=== PATIENT | female | born 2000 | race Caucasian/White ===

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

== ENCOUNTER 2021-12-08 12:41 | Outpatient (CLI) | payer OTHER, MEDICAID, SELFPAY ==
--- NOTE | 2021-12-08 12:46 | RAD_ITS ---
STUDY: X-RAY - LUMBAR SPINE REASON FOR EXAM: Female, 21 years old. PAIN TECHNIQUE: 3 view(s) of the lumbar spine were obtained. COMPARISON: None FINDINGS: There is straightening of the normal lumbar lordosis. There is no substantial scoliosis. There is a normal alignment of the vertebrae. Normal vertebral bodies and endplates. Normal disc space heights. The soft tissue structures are unremarkable. RAD/Lumbar Spine 2 or 3 Views IMPRESSION: Straightening of the normal lumbar lordosis. Electronically Signed: Jason Taylor MD at 15:31 EST ,
--- NOTE | 2021-12-08 12:46 | RAD_ITS ---
STUDY: X-RAY - PELVIS AND BILATERAL HIPS REASON FOR EXAM: Female, 21 years old. Acute low back pain. TECHNIQUE: AP view of the pelvis.? 2 views of the right hip, and 2 views of the left hip were obtained. COMPARISON: None. FINDINGS: There is a non-specific bowel gas pattern. There is a 4.7 mm rounded calcific density in the left pelvis. This may represent a distal left ureteral calculus. Clinical correlation is recommended. Normal bilateral iliac wings, sacroiliac joints and visualized sacrum. Normal bilateral superior and inferior pubic rami. Normal pubic symphysis. Normal bilateral ischial tuberosities. Normal visualized right femoral head. Normal right acetabulum. Normal right hip joint. Normal visualized left femoral head. Normal left acetabulum. Normal left hip joint. RAD/Hips B/L min 2 views w/ Pelvis IMPRESSION: Normal x-ray examination of the pelvis and bilateral hips. 4.7 mm rounded calcific density in the left hemipelvis. A distal left ureteral calculus should be ruled out. Electronically Signed: Jason Taylor MD at 13:42 EST ,
== END 2021-12-08 23:59 | disposition short-term general hospital (02) ==
LOC: MTRAD 12:44
PROVIDERS: PCP Student in an Organized Health Care Education/Training Program; Referring Provider Student in an Organized Health Care Education/Training Program; Visit Provider Student in an Organized Health Care Education/Training Program
DX: M54.50 Low back pain, unspecified (principal)
CPT/HCPCS: 72100; 73521

== ENCOUNTER 2021-12-20 14:27 | Outpatient (CLI) | payer OTHER, MEDICAID, SELFPAY ==
--- NOTE | 2021-12-20 14:30 | US_ITS ---
STUDY: ULTRASOUND OF THE FEMALE PELVIS - COMPLETE REASON FOR EXAM: Female, 21 years old. LOW BK PAIN TECHNIQUE: Endovaginal. Transvaginal US was obtained to better visualized the ovaries. COMPARISON: None. FINDINGS: The uterus is anteverted and is in a midline position. The uterus measures 5.5x3.4 cm. Normal uterine cervix. The endometrium measures 1 mm in thickness, and is hyperechoic. There is no demonstrated endometrial mass. There is no demonstrated myometrial mass. I.U.D. - The patient does not have an I.U.D. The right ovary is visualized. The right ovary measures 2.3x1.6 cm. There is no right ovarian cyst or ovarian mass. There is no visualized right adnexal mass or complex lesion. There is normal arterial and normal venous vascularity. The left ovary is visualized. The left ovary measures 2.2x1.7 cm. There is no left ovarian cyst or ovarian mass. There is no visualized left adnexal mass or complex lesion. There is normal arterial and normal venous vascularity. There is no fluid in the cul-de-sac. The urinary bladder is distended. This can suggest urinary retention. Bladder volume is 721cc. US/Pelvic (Non ) IMPRESSION: The urinary bladder is distended. This can suggest urinary retention. Electronically Signed: Ollie Salguero MD at 18:53 EST ,
--- NOTE | 2021-12-20 14:31 | US_ITS ---
STUDY: ULTRASOUND OF THE FEMALE PELVIS - COMPLETE REASON FOR EXAM: Female, 21 years old. LOW BK PAIN TECHNIQUE: Endovaginal. Transvaginal US was obtained to better visualized the ovaries. COMPARISON: None. FINDINGS: The uterus is anteverted and is in a midline position. The uterus measures 5.5x3.4 cm. Normal uterine cervix. The endometrium measures 1 mm in thickness, and is hyperechoic. There is no demonstrated endometrial mass. There is no demonstrated myometrial mass. I.U.D. - The patient does not have an I.U.D. The right ovary is visualized. The right ovary measures 2.3x1.6 cm. There is no right ovarian cyst or ovarian mass. There is no visualized right adnexal mass or complex lesion. There is normal arterial and normal venous vascularity. The left ovary is visualized. The left ovary measures 2.2x1.7 cm. There is no left ovarian cyst or ovarian mass. There is no visualized left adnexal mass or complex lesion. There is normal arterial and normal venous vascularity. There is no fluid in the cul-de-sac. The urinary bladder is distended. This can suggest urinary retention. Bladder volume is 721cc. US/Transvaginal Non- IMPRESSION: The urinary bladder is distended. This can suggest urinary retention. Electronically Signed: Ollie Salguero MD at 18:53 EST ,
== END 2021-12-20 23:59 | disposition home or self-care (01) ==
LOC: US 14:28
PROVIDERS: PCP Student in an Organized Health Care Education/Training Program; Referring Provider Student in an Organized Health Care Education/Training Program; Visit Provider Student in an Organized Health Care Education/Training Program
DX: R93.7 Abnormal findings on diagnostic imaging of other parts of musculoskeletal system (principal); M54.50 Low back pain, unspecified
CPT/HCPCS: 76830; 76856

== ENCOUNTER → 2022-04-25 | Outpatient (CLI) | payer OTHER, MEDICAID, SELFPAY ==
[2022-04-29 19:29] LABS: HPV Reflexed? NOT INDICATED
== END | disposition home or self-care (01) ==
LOC: LABSPEC 04-26 08:14
PROVIDERS: PCP Student in an Organized Health Care Education/Training Program; Referring Provider Nurse Practitioner Women's Health; Visit Provider Nurse Practitioner Women's Health
DX: Z12.4 Encounter for screening for malignant neoplasm of cervix (principal)
CPT/HCPCS: 88175; G0145

== ENCOUNTER 2022-08-17 20:36 | Emergency (ER) | payer OTHER, MEDICAID, SELFPAY ==
[2022-08-17 20:37] VITALS: BP 181/99; PULSE 105; RESP 17; TEMP 36.8; O2SAT 96; BMI 39.1
--- NOTE | 2022-08-17 22:09 | EKG12_ITS ---
Test Reason : DYSRHYTHMIA Blood Pressure : / mmHG Vent. Rate : 093 BPM Atrial Rate : 093 BPM P-R Int : 136 ms QRS Dur : 084 ms QT Int : 358 ms P-R-T Axes : 048 028 031 degrees QTc Int : 445 ms Normal sinus rhythm Normal ECG Confirmed by HIRAM ESCAMILLA, MAAME ([id number]), story editor MI COYLE ([id number]) on 08/18/2022 2:07:04 P M Referred By: BERE Confirmed By:ADAIR GANDHI MD
[2022-08-17 22:36] LABS: Absolute Lymphocyte Count 3.37 X10^3/uL (0.83-4.51); Absolute Neutrophil Count 7.9 X10^3/uL (2.0-7.7); Basophil# 0.05 X10^3/uL; Basophil% 0.4 % (0-1); Hematocrit 39.2 % (37-47); Hemoglobin 12.4 g/dL (12.0-15.0); Lymphocyte # 3.37 X10^3/ul (0.83-4.51); Lymphocyte % 27.6 % (19-41); Mean Corp Hgb Conc 31.6 g/dL (32-36); Mean Corpuscular Volume 82.2 fL (81-99); Mean Platelet Vol. 10.3 fl (6.2-12.0); Monocyte# 0.88 X10^3/uL; Monocyte% 7.2 % (0-10); NRBC Flagged by Analyzer 0 % (0-5); Neutrophil # 7.87 X10^3/uL (2.7-7.7); Neutrophil % 64.5 % (47-70); Platelet Count 317 K/mm3 (150-450); RBC Distribution Width SD 42.3 fl (35.1-43.9); Red Blood Count 4.77 M/mm3 (4.2-5.4); White Blood Count 12.2 K/mm3 (4.4-11.0)
[2022-08-17 22:48] LABS: Internal QC Validated? YES +Cl - CLEAR BKGD; Pregnancy, Serum, hCG Quali. NEGATIVE Negative
--- NOTE | 2022-08-17 22:50 | EDS_ITS ---
HPI History of Present Illness Chief Complaint: Dizziness Narrative Narrative: Patient is a 22-year-old female who states that today when she would change positions such as standing up or bending over she would experience dizziness. She states that the dizziness is more of a lightheaded sensation and not a sense of motion. She states that she also had felt palpitations associated with this. She denies any change in medication or illicit drug. She denies any bouts of nausea vomiting or diarrhea or concern for . She denies any history or family history of cardiac dysrhythmia. She states that as the symptoms have been recurrent throughout the day she presents for evaluation [facility] Medical History Anxiety Asthma Environmental allergies Non-smoker Home Medications loratadine 10 mg tablet 10 mg PO DAILY 04/26/14 [History Last Taken Unknown] albuterol sulfate 90 mcg/actuation aerosol inhaler 2 puff inhalation Q4H PRN PRN Asthma 05/21/14 [History Last Taken Unknown] fluticasone furoate 100 mcg-vilanterol 25 mcg/dose inhalation powder (Breo Ellipta) 1 inh inhalation DAILY 11/03/17 [History Last Taken Unknown] montelukast 10 mg tablet 10 mg PO DAILY 04/27/19 [History Last Taken Unknown] trazodone 100 mg tablet 100 mg PO DAILY 01/11/21 [History Last Taken Unknown] dextroamphetamine-amphetamine ER 20 mg 24hr capsule,extend release (Adderall XR) 30 mg PO DAILY 04/25/22 [History Last Taken Unknown] etonogestrel 0.12 mg-ethinyl estradiol 0.015 mg/24 hr vaginal ring (NuvaRing) 1 vag ring vaginal Q4W #3 ea 04/25/22 [Rx Last Taken Unknown] venlafaxine 75 mg tablet 150 mg PO DAILY 04/25/22 [History Last Taken Unknown] Allergy/AdvReac Type Severity Reaction Status Date / Time No Known Allergies Allergy Verified 08/17/22 20:40 Family History (Updated 04/25/22 @ 09:03 by Donna Tran) Mother H/O: hysterectomy Surgical History History of skin graft History of tonsillectomy Social History (Updated 04/25/22 @ 09:03 by Donna Tran) number of children: 0 current occupational status: employed 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 Smoking Status: Never smoker alcohol intake: never substance use type: does not use seatbelt use: always do you feel safe at home: Yes ROS ROS ED Constitutional Constitutional ED: Denies chills or fever(s) Eyes Eyes: Denies change in vision ENT ENT ED: Denies sore throat Cardiovascular Cardiovascular: Reports palpitations; Denies chest pain Respiratory/Chest Respiratory/Chest: Denies cough or dyspnea Gastrointestinal Gastrointestinal: Denies abdominal pain, diarrhea, nausea or vomiting Genitourinary Genitourinary ED: Denies dysuria Musculoskeletal Musculoskeletal: Denies myalgias Integumentary Denies rash Neurologic Neurologic: Reports other Details: Positive dizziness ; Denies headache(s) Psychiatric Psychiatric: Reports anxiety Hematologic/Lymphatic Hematologic/Lymphatic: Denies easy bleeding or easy bruising EXAM Physical Exam Const Vital Signs: 08/17/22 20:37 08/17/22 21:37 08/17/22 23:09 Temperature 98.2 F Temperature Source Temporal Pulse Rate 105 H 90 Pulse Rate [Lying] Pulse Rate [Sitting (for 1 minute prior to obtaining)] Pulse Rate [Standing (for 1 minute prior to obtaining)] Respiratory Rate 17 16 Respiratory Effort Normal Respiratory Pattern Normal Blood Pressure 181/99 H 122/79 H Blood Pressure [Lying] Blood Pressure [Sitting (for 1 minute prior to obtaining)] Blood Pressure [Standing (for 1 minute prior to obtaining)] Blood Pressure Mean 126 93 Blood Pressure Mean [Lying] Blood Pressure Mean [Sitting (for 1 minute prior to obtaining)] Blood Pressure Mean [Standing (for 1 minute prior to obtaining)] Pulse Ox 96 98 Oxygen Delivery Method Room Air Room Air 08/17/22 23:49 08/18/22 00:07 Temperature Temperature Source Pulse Rate 92 Pulse Rate [Lying] 94 Pulse Rate [Sitting (for 1 minute prior to obtaining)] 95 Pulse Rate [Standing (for 1 minute prior to obtaining)] 97 Respiratory Rate 22 H Respiratory Effort Respiratory Pattern Blood Pressure 135/84 H Blood Pressure [Lying] 134/76 H Blood Pressure [Sitting (for 1 minute prior to obtaining)] 137/81 H Blood Pressure [Standing (for 1 minute prior to obtaining)] 132/82 H Blood Pressure Mean Blood Pressure Mean [Lying] 95 Blood Pressure Mean [Sitting (for 1 minute prior to obtaining)] 99 Blood Pressure Mean [Standing (for 1 minute prior to obtaining)] 98 Pulse Ox 96 Oxygen Delivery Method Positive well nourished, well developed and obese General Appearance ED: well developed Nutritional Appearance: obese HEENT Reports TM's clear HEENT Narrative: Mucous membranes are slightly dry and tacky Tympanic Membrane ED: Yes TM's clear Eyes PERRL and EOMs intact bilaterally Neck supple Resp normal respiratory effort and clear to auscultation bilaterally Cardio regular rate and regular rhythm Rate: other Other Details: Radial pulses are plus 2 out of 4 bilaterally are equal and symmetric Extremity normal to inspection Extremity Narrative: No asymmetric edema no pitting edema Neuro oriented x3 and CN's II-XII intact bilaterally Neuro Narrative: Cranial nerves II through XII are grossly intact there are no focal neurologic deficit. No pronator drift no dysmetria no truncal ataxia. NIH stroke scale score of 0. No nystagmus noted. Sensorium / Orientation: alert Psych mental status grossly normal Skin no rashes or lesions noted and skin turgor normal MDM MDM MDM Narrative Medical decision making narrative: Patient presented to the ER actually hypertensive and slightly tachycardic but otherwise with stable vitals. She had a normal neurologic exam with no truncal ataxia. She also reported that dizziness was more of a lightheaded sensation and not vertiginous in nature. Therefore at this time I did not feel there was need for head CT. Basic blood work was obtained to check for causes of the palpitations as well as lightheaded sensation. H&H is stable and electrolytes are within normal limit. 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 Orthostatic vitals were also negative. Therefore at this time as work-up is negative her symptoms have resolved and there is been no cardiac dysrhythmia noted I do not feel there is need for further evaluation in the hospital and patient is otherwise safe for discharge. Lab Data Attestation: I reviewed the patient's lab results. Labs: Laboratory Results - last 24 hr 08/17/22 08/17/22 08/17/22 22:15 22:15 22:15 WBC 12.2 H RBC 4.77 Hgb 12.4 Hct 39.2 MCV 82.2 MCH 26.0 L MCHC 31.6 L RDW Std Deviation 42.3 RDW Coeff of Valeria 14.0 Plt Count 317 MPV 10.3 Immature Gran % (Auto) 0.300 Neut % (Auto) 64.5 Lymph % (Auto) 27.6 [place] % (Auto) 7.2 Eos % (Auto) 0.0 Baso % (Auto) 0.4 Absolute Neuts (auto) 7.9 H Absolute Lymphs (auto) 3.37 Nucleated RBC % 0 Sodium 139 Potassium 3.7 Chloride 106 Carbon Dioxide 26.0 Anion Gap 7 BUN 12 Creatinine 0.87 Estim Creat Clear Calc 92.04 Est GFR (MDRD) Af Amer 105 Est GFR (MDRD) Non-Af 87 BUN/Creatinine Ratio 13.7 Glucose 101 Calcium 9.2 Magnesium 2.1 Serum , Qual NEGATIVE Discharge Plan Triage Chief Complaint: Dizziness ED Provider: Rory Desir Dx/Rx/DC Orders Clinical Impression: Dizziness, Palpitations Instructions: ED Dizziness, Uncertain Cause, ED Palpitations Prescriptions: No Action fluticasone furoate-vilanterol [Breo Ellipta] 100-25 mcg/dose blister with device 1 inh INHALATION DAILY trazodone 100 mg tablet 100 mg PO DAILY dextroamphetamine-amphetamine [Adderall XR] 20 mg capsule,extended release 24hr 30 mg PO DAILY etonogestrel-ethinyl estradiol [NuvaRing] 0.12-0.015 mg/24 hr ring 1 vag ring VAGINAL Q4W Qty: 3 4RF Rx Instructions: leave in place for 3 weeks of a 4-week cycle loratadine 10 MG tablet 10 mg PO DAILY albuterol sulfate 1 INHALER inhaler 2 puff INHALATION Q4H PRN PRN (Reason: Asthma) montelukast 10 MG tablet 10 mg PO DAILY venlafaxine 75 mg tablet 150 mg PO DAILY Primary Care Provider: Carlos Howell Referrals: Carlos Howell DO [Primary Care Provider] - Disposition Disposition: Home, Self Care Discharge Date/Time: 08/18/22 00:12
[2022-08-17 22:52] LABS: Anion Gap 7 (5-15); BUN 12 mg/dL (7-18); BUN/Creat Ratio 13.7 RATIO (10-20); Calcium,Total 9.2 mg/dL (8.5-10.1); Chloride 106 mmol/L (98-107); Creatinine, Serum 0.87 mg/dL (0.55-1.02); EST Glomerular Filtration Rate 87 mL/min (>60); Est Glom Filt Rate - Afr Amer 105 mL/min (>60); Estimated Creatinine Clearance 92.04 ml/min; Glucose 101 mg/dL (74-106); Magnesium 2.1 mg/dL (1.6-2.6); Potassium 3.7 mmol/L (3.5-5.1); Sodium Level 139 mmol/L (136-145)
[2022-08-17 23:09] VITALS: BP 122/79; PULSE 90; RESP 16; O2SAT 98
[2022-08-17 23:49] VITALS: BP 132/82; BP 134/76; BP 137/81; PULSE 94; PULSE 95; PULSE 97
[2022-08-18 00:07] VITALS: BP 135/84; PULSE 92; RESP 22; O2SAT 96
== END 2022-08-18 00:12 | disposition home or self-care (01) ==
PROVIDERS: Emergency Provider Emergency Medicine; PCP Student in an Organized Health Care Education/Training Program; Visit Provider Emergency Medicine
DX: R42 Dizziness and giddiness (principal); R00.2 Palpitations; E66.9 Obesity, unspecified; J45.909 Unspecified asthma, uncomplicated
CPT/HCPCS: 80048; 83735; 84703; 85025; 93005; 99284; A4216

== ENCOUNTER → 2023-07-03 | Outpatient (CLI) | payer OTHER, MEDICAID, SELFPAY ==
--- NOTE | 2023-07-03 06:57 | CT_ITS ---
STUDY: CT LEFT FOOT WITHOUT CONTRAST REASON FOR EXAM: Female, 23 years old. FLAT FOOTED, EVAL FOR SURGERY RADIATION DOSAGE (If Supplied By Facility): CTDIvol = ( 15.35 ) mGy, DLP = ( 365.28 ) mGycm TECHNIQUE: Thin section transaxial imaging of the foot was obtained, with sagittal and coronal reconstructed images. Individualized dose optimization techniques were used for this CT. COMPARISON: None. FINDINGS: Normal talus, calcaneus, and tarsal bones. Normal Boehler''s angle and calcaneal pitch, without evidence of pes planus on this study. Normal visualized tibiotalar, subtalar, talonavicular, calcaneocuboid, tarsal and tarsometatarsal articulations. Normal metatarsi. Normal metatarsophalangeal joint of the great toe. Normal tibial and fibular sesamoid bones. Normal interphalangeal joint of the great toe. Normal phalanges of the great toe. Normal second through fifth metatarsophalangeal joints. Normal interphalangeal joints and phalanges of the lesser toes. The soft tissue structures are unremarkable. No fractures are present. No visualized osteochondral lesions. CT/Extremity Lower without Contra IMPRESSION: Normal CT examination of the foot. Electronically Signed: Marcos Dennison MD at 8:58 EDT ,
--- NOTE | 2023-07-03 06:59 | CT_ITS ---
STUDY: CT RIGHT FOOT WITHOUT CONTRAST REASON FOR EXAM: Female, 23 years old. PAIN IN LEFT/RIGHT FOOT RADIATION DOSAGE (If Supplied By Facility): CTDIvol = ( 15.35 ) mGy, DLP = ( 369.11 ) mGycm TECHNIQUE: Thin section transaxial imaging of the foot was obtained, with sagittal and coronal reconstructed images. Individualized dose optimization techniques were used for this CT. COMPARISON: None. FINDINGS: Normal talus, calcaneus, and tarsal bones. Normal visualized tibiotalar, subtalar, talonavicular, calcaneocuboid, tarsal and tarsometatarsal articulations. Normal metatarsi. Normal metatarsophalangeal joint of the great toe. Normal tibial and fibular sesamoid bones. Normal interphalangeal joint of the great toe. Normal phalanges of the great toe. Normal second through fifth metatarsophalangeal joints. Normal interphalangeal joints and phalanges of the lesser toes. The soft tissue structures are unremarkable. No fractures or osteochondral defects are present. No callus formation or periosteal reaction is present. No demonstrated pes planus deformity. Normal calcaneal pitch. RIGHT FOOT CT/Extremity Lower without Contra IMPRESSION: Normal CT examination of the right foot. Electronically Signed: Marcos Dennison MD at 9:03 EDT Reading Location ID and State: [facility] / [place] , Service support ,
== END | disposition home or self-care (01) ==
LOC: CT 06:56
PROVIDERS: PCP Student in an Organized Health Care Education/Training Program; Referring Provider Podiatrist; Visit Provider Podiatrist
DX: M79.671 Pain in right foot (principal); M79.672 Pain in left foot
CPT/HCPCS: 73700

== ENCOUNTER 2024-05-07 14:15 | Emergency (ER) | payer OTHER, SELFPAY ==
[2024-05-07 14:17] VITALS: BP 140/85; PULSE 102; RESP 16; TEMP 36.6; O2SAT 99; BMI 40.9
--- NOTE | 2024-05-07 15:37 | EDS_ITS ---
HPI History of Present Illness Chief Complaint: Back Informant: patient Onset/Context/Timing Onset: Month(s) Context: Gradual Onset Timing: Intermittent Quality: Dull and Aching Location: Lumbar Current Severity: Mild Maximum Severity: Mild Worsened by: improves with Movement Relieved by: Nothing Associated Symptoms Associated Symptoms: Negative for Numbness, Tingling, Radiation to Right Leg, Radiation to Left Leg, Fever, Abdominal Pain, Dysuria, Unable to Ambulate, Unable to Transfer, Urinary Retention, Urinary Incontinence, Constipation or Fecal Incontinence Narrative Narrative: 24-year-old female history of asthma. She has had chronic back pain for years. Last several months it seems of gotten worse. She uses Tylenol and Aleve daily. Denies any fall injury or trauma. No incontinence. No fever. She is not on any blood thinners. Patient states that the pain seems to be there more often. She denies any prior back surgery. She denies any leg weakness or numbness. Prior similar symptoms: Yes Recent Illness/Hospitalization: Yes (Admission for mental health.) [facility] Medical History Non-smoker Anxiety Asthma Environmental allergies Home Medications ?Medication ?Instructions ?Recorded ?Last Taken ?Type loratadine 10 mg tablet 10 mg PO DAILY 04/26/14 Unknown History albuterol sulfate 90 mcg/actuation 2 puff inhalation Q4H PRN PRN 05/21/14 Unknown History aerosol inhaler Asthma fluticasone furoate 100 1 inh inhalation DAILY 11/03/17 Unknown History mcg-vilanterol 25 mcg/dose inhalation powder (Breo Ellipta) montelukast 10 mg tablet 10 mg PO DAILY 04/27/19 Unknown History trazodone 100 mg tablet 100 mg PO DAILY 01/11/21 Unknown History dextroamphetamine-amphetamine ER 30 mg PO DAILY 04/25/22 Unknown History 20 mg 24hr capsule,extend release (Adderall XR) etonogestrel 0.12 mg-ethinyl 1 vag ring vaginal Q4W #3 ea 04/25/22 Unknown Rx estradiol 0.015 mg/24 hr vaginal ring (NuvaRing) venlafaxine 75 mg tablet 150 mg PO DAILY 04/25/22 Unknown History alprazolam 0.5 mg tablet (Xanax) 0.5 mg PO DAILY 01/14/23 Unknown History bupropion HCl 150 mg tablet,12 hr 150 mg PO DAILY 01/14/23 Unknown History sustained-release (Wellbutrin SR) Allergy/AdvReac Type Severity Reaction Status Date / Time No Known Allergies Allergy Verified 05/07/24 14:19 Family History Mother H/O: hysterectomy Surgical History History of skin graft History of tonsillectomy Social History number of children: 0 current occupational status: employed current occupation: BLENDING MACHINE OPERATOR Smoking Status: Never smoker alcohol intake: never substance use type: does not use seatbelt use: always do you feel safe at home: Yes ROS ROS ED ROS Narrative Denies any recent illness. No fever. No bowel or bladder incontinence or retention. Review of Systems ROS Unobtainable: Denies due to encephalopathy Constitutional Constitutional ED: Denies chills or fever(s) Eyes Eyes: Denies blurry vision ENT ENT ED: Denies ear pain Cardiovascular Cardiovascular: Denies chest pain Respiratory/Chest Respiratory/Chest: Denies dyspnea Gastrointestinal Gastrointestinal: Denies abdominal pain Genitourinary Genitourinary ED: Denies dysuria, hematuria or urinary frequency Musculoskeletal Musculoskeletal: Reports back pain; Denies arthralgias, myalgias or neck pain Integumentary Denies abscess or Abrasions Neurologic Neurologic: Denies headache(s) Psychiatric Psychiatric: Denies anxiety or depression Endocrine Endocrinology: Denies cold intolerance Hematologic/Lymphatic Hematologic/Lymphatic: Denies easy bleeding, easy bruising or lymphadenopathy Allergic/Immunologic Allergic/Immunologic ED: Denies mouth swelling, tongue swelling or urticaria EXAM Physical Exam Narrative Exam Narrative: Well-appearing 24-year-old female sitting upright in bed. Vital signs are stable afebrile. H EENT exam unremarkable. Neck nontender. Lungs clear to auscultation bilateral. Heart regular rate and rhythm no murmur rate about 95. Chest wall and ribs nontender. Abdomen soft nontender. Moving all 4 extremities. 5 out of 5 technical manager chemical plant strength. Both lower extremities have normal range of motion with flexion extension of the hips, knees and dorsi and plantarflexion. 5 out of 5 strength. Normal sensation. No cauda equina. Normal medial thigh sensation. Negative straight leg raise bilaterally. Back she has mild tenderness over her paralumbar soft tissue and lower lumbar spine. There is no ecchymosis or bruising. There is no redness or warmth. There is no signs of trauma. Upper back and spine are nontender. Neurologically she is awake and alert. No focal motor or sensory deficits. No cauda equina. Good strength in both the upper and lower extremities and normal sensation. Const Vital Signs: 05/07/24 14:17 Temperature 97.9 F Temperature Source Temporal Pulse Rate 102 H Respiratory Rate 16 Blood Pressure 140/85 H Blood Pressure Mean 103 Pulse Ox 99 Oxygen Delivery Method Room Air Positive well nourished and well developed; Negative for cachectic, contractures or unkempt General Appearance ED: well developed and NAD; Negative for unkempt, cachectic, contractures or pallor Nutritional Appearance: Negative for cachectic HEENT Reports moist mucous membranes; Denies dry mucous membranes Negative for trauma or tenderness Mouth ED: No dry mucous membranes Mouth: No dry mucous membranes Eyes PERRL and EOMs intact bilaterally General Eye ED: Negative for pale conjunctiva or scleral icterus Neck no lymphadenopathy, supple and no JVD General: Negative for tenderness Thyroid: Negative for other Resp normal respiratory effort and clear to auscultation bilaterally Effort and Inspection: Negative for pain with movement Auscultation: Negative for rales, rhonchi, wheezes or diminished lung sounds Cardio regular rate, regular rhythm, S1 normal heart sound, S2 normal heart sound and no murmurs Palpation: Negative for palpable S3 Rate: Negative for bradycardia or tachycardic Rhythm: Negative for abnormal rhythm Bruits: Negative for other GI normal to inspection, nondistended, normoactive bowel sounds, soft to palpation, non-tender, non-distended and no masses Inspection: Negative for abdominal distention Auscultation: Negative for hyperactive bowel sounds Palpation: Negative for tender, guarding, mass, pulsatile mass or rebound tenderness present Back/Spine normal to inspection; Negative for no thoracic nor lumbar tenderness Back/Spine Narrative: Very minimal soft tissue tenderness and lumbar tenderness lower back. No signs of trauma. No redness or warmth. Upper back and spine are nontender. Cervical Spine: Negative for cervical spine tenderness and Negative for paracer vical muscle tenderness Thoracic Spine / Upper Back: paraspinal muscle tenderness Lumbar Spine / Lower Back: straight leg raise negative bilaterally; Negative for ROM limited Extremity normal to inspection and no clubbing, cyanosis or edema General Extremety ED: Negative for edema or tenderness General Extremity: Negative for edema Neuro oriented x3 and no sensory deficits noted Sensorium / Orientation: alert; Negative for confused, lethargic or stuporous Motor Exam: strength 5/5 throughout Psych mental status grossly normal Appearance: Negative for unkempt Attitude: No agitated Mood & Affect: Negative for depressed, sad or tearful Skin no rashes or lesions noted and no wounds General Skin Exam: Negative for jaundice or pallor Lesions: No lesion noted Rashes: No rashes noted Trauma: Negative for abrasion or puncture Wounds: Negative for wounds noted MDM MDM MDM Narrative Medical decision making narrative: 24-year-old female with acute on chronic back pain. Exam very benign. Motor strength sensation both upper and lower extremities. She needs no emergent imaging. There is no signs of cauda equina or sciatica or weakness. She will be given IM injection of Toradol. Continue her Aleve and Tylenol at home. Outpatient follow-up with her primary care physician if not improving. History & Record Review Discussion w/independent historian: Patient Additional record(s) reviewed:: Prior inpatient record, Prior outpatient record, Prior ED visit and Prior labs Discharge Plan Triage Chief Complaint: Back ED Provider: Maurice Fine Dx/Rx/DC Orders Clinical Impression: Back pain Instructions: ED Back Pain (Acute or Chronic) Prescriptions: No Action fluticasone furoate-vilanterol [Breo Ellipta] 100-25 mcg/dose blister with device 1 inh INHALATION DAILY trazodone 100 mg tablet 100 mg PO DAILY dextroamphetamine-amphetamine [Adderall XR] 20 mg capsule,extended release 24hr 30 mg PO DAILY etonogestrel-ethinyl estradiol [NuvaRing] 0.12-0.015 mg/24 hr ring 1 vag ring VAGINAL Q4W Qty: 3 4RF Rx Instructions: leave in place for 3 weeks of a 4-week cycle bupropion HCl [Wellbutrin SR] 150 mg tablet sustained-release 12 hr 150 mg PO DAILY alprazolam [Xanax] 0.5 mg tablet 0.5 mg PO DAILY loratadine 10 MG tablet 10 mg PO DAILY albuterol sulfate 1 INHALER inhaler 2 puff INHALATION Q4H PRN PRN (Reason: Asthma) montelukast 10 MG tablet 10 mg PO DAILY venlafaxine 75 mg tablet 150 mg PO DAILY Primary Care Provider: Carlos Howell Referrals: Carlos Howell, DO [Primary Care Provider] - 10-14 Days if not better Activity Restrictions/Additional Instructions: Your back pain appears to be musculoskeletal. Currently there is no signs of this being an acute disc or any compression of the nerve or your spinal cord. You have good strength and sensation in your lower extremities. Follow-up with your doctor if this does not improve. Continue to use Tylenol and Aleve for your pain. Do back strengthening exercises such as sit ups, leg lifts and others to strengthen the muscles in your lower back. Print Language: Lithuanian Disposition Disposition: Home, Self Care
[2024-05-07] MEDS: Ketorolac 60 MG/2 ML Vial IM (15:38)
== END 2024-05-07 18:37 | disposition home or self-care (01) ==
LOC: ED 15:53
PROVIDERS: Emergency Provider Emergency Medicine; Visit Provider Emergency Medicine
DX: M54.9 Dorsalgia, unspecified (principal); G89.29 Other chronic pain; J45.909 Unspecified asthma, uncomplicated; Z79.51 Long term (current) use of inhaled steroids; F41.9 Anxiety disorder, unspecified; Z79.899 Other long term (current) drug therapy
CPT/HCPCS: 96372; 99282

== ENCOUNTER 2024-07-11 21:50 | Emergency (ER) | payer OTHER, SELFPAY ==
[2024-07-11 21:50] VITALS: BP 133/85; PULSE 82; RESP 17; TEMP 36.2; O2SAT 98; BMI 43.6
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
[2024-07-12] MEDS: Ketorolac 30 MG/ML Syringe IV (00:41)
[2024-07-12] MEDS: 0.9% Normal Saline (1000mL) 1,000 ML 999 ML IV (00:41)
[2024-07-12 00:49] LABS: Absolute Lymphocyte Count 4.87 X10^3/uL (0.83-4.51); Absolute Neutrophil Count 7.9 X10^3/uL (2.0-7.7); Basophil# 0.07 X10^3/uL; Basophil% 0.5 % (0-1); Hematocrit 36.1 % (37-47); Hemoglobin 11.4 g/dL (12.0-15.0); Lymphocyte # 4.87 X10^3/ul (0.83-4.51); Lymphocyte % 34.7 % (19-41); Mean Corp Hgb Conc 31.6 g/dL (32-36); Mean Corpuscular Hgb 26.6 pg (27.0-32.0); Mean Corpuscular Volume 84.3 fL (81-99); Mean Platelet Vol. 10.1 fl (6.2-12.0); Monocyte# 1.16 X10^3/uL; Monocyte% 8.3 % (0-10); NRBC Flagged by Analyzer 0 % (0-5); Neutrophil # 7.91 X10^3/uL (2.7-7.7); Neutrophil % 56.2 % (47-70); Platelet Count 263 K/mm3 (150-450); RBC Distribution Width CV 13.4 % (11.6-14.6); RBC Distribution Width SD 41.3 fl (35.1-43.9); Red Blood Count 4.28 M/mm3 (4.2-5.4); White Blood Count 14.1 K/mm3 (4.4-11.0)
[2024-07-12 01:02] LABS: Anion Gap 4 (5-15); BUN 16 mg/dL (7-18); BUN/Creat Ratio 21.5 RATIO (10-20); Calcium,Total 9.2 mg/dL (8.5-10.1); Chloride 108 mmol/L (98-107); Creatinine, Serum 0.74 mg/dL (0.55-1.02); EST Glomerular Filtration Rate 103 mL/min (>60); Est Glom Filt Rate - Afr Amer 124 mL/min (>60); Glucose 103 mg/dL (74-106); Potassium 3.9 mmol/L (3.5-5.1); Sodium Level 140 mmol/L (136-145)
[2024-07-12 01:50] VITALS: BP 135/68; PULSE 85; RESP 20; O2SAT 100
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
[2024-07-12 02:09] VITALS: BP 161/87; PULSE 75; RESP 16; TEMP 36.3; O2SAT 97
== END 2024-07-12 02:10 | disposition home or self-care (01) ==
PROVIDERS: Emergency Provider Emergency Medicine; Visit Provider Emergency Medicine
DX: S30.1XXA Contusion of abdominal wall, initial encounter (principal); S20.20XA Contusion of thorax, unspecified, initial encounter; F41.9 Anxiety disorder, unspecified; J45.909 Unspecified asthma, uncomplicated; V43.52XA Car driver injured in collision with other type car in traffic accident, initial encounter; W22.10XA Striking against or struck by unspecified automobile airbag, initial encounter; Y92.410 Unspecified street and highway as the place of occurrence of the external cause; Z79.51 Long term (current) use of inhaled steroids; Z79.899 Other long term (current) drug therapy
CPT/HCPCS: 70450; 71260; 72125; 74177; 80048; 85025; 96361; 96374; 99282; Q9967; A4216